=== PATIENT | male | born 1960 | race Caucasian/White ===

== ENCOUNTER → 2023-08-14 | Outpatient (CLI) | payer OTHER ==
--- NOTE | 2023-08-15 21:35 | MR ---
EXAMINATION TYPE: MR shoulder RT wo con DATE OF EXAM: 08/14/2023 COMPARISON: Right shoulder radiograph 08/12/2023 HISTORY: Right shoulder pain TECHNIQUE: Multiplanar, multisequence imaging of the right shoulder is performed without contrast. FINDINGS: SUPRASPINATUS: Near complete, full-thickness tear involving the anterior supraspinatus, measures 2.1 x 2.1 cm. Superimposed intrasubstance longitudinal tearing extends medially to the myotendinous junct ion. INFRASPINATUS: Intact. SUBSCAPULARIS: Intact. TERES MINOR: Intact. BICEPS: Intact. Intra-articular portion demonstrates mild thickening and increased intrasubstance sig nal, relating to tendinosis. Normal anchor in the supraglenoid tubercle. Extra-articular portion is a ppropriately positioned within the bicipital groove. GLENOHUMERAL JOINT: Normal alignment and joint space. Normal cartilage. No effusion. ACROMIOCLAVICULAR JOINT: Mild capsular hypertrophy. Normal subacromial space. No effusion. LABRUM: Normal, given the limitations of a non-arthrographic exam. SUBDELTOID BURSA: Normal. No increased fluid. MUSCLES: Normal. BONE MARROW: Normal. OTHER: No additional significant abnormality is appreciated. IMPRESSION: 1. Supraspinatus full-thickness tear with superimposed intrasubstance longitudinal tear. 2. Biceps tendinosis. 3. Mild osteoarthrosis AC joint.
== END | disposition home or self-care (01) ==
LOC: RADMRIMAIN 20:15
PROVIDERS: ATTEND Orthopaedic Surgery
DX: M75.111 Incomplete rotator cuff tear or rupture of right shoulder, not specified as traumatic (principal); M19.011 Primary osteoarthritis, right shoulder; M67.813 Other specified disorders of tendon, right shoulder

== ENCOUNTER → 2023-09-07 | Outpatient (CLI) | payer OTHER ==
[2023-09-07 15:56] LABS: Basophils # (A) 0.03 X 10*3/uL (0.00-0.10); Basophils % (A) 0.5 %; Eosinophils # (A) 0.12 X 10*3/uL (0.04-0.35); HGB 15.3 g/dL (13.0-17.0); Lymphocytes # (A) 1.71 X 10*3/uL (0.90-5.00); Lymphocytes % (A) 28.2 %; MCH 31.4 pg (27.0-32.0); MCHC 33.3 g/dL (32.0-37.0); MCV 94.5 FL (80.0-97.0); Mean Platelet Volume 10.5 FL (9.5-12.2); Monocytes # (A) 0.69 X 10*3/uL (0.20-1.00); Monocytes % (A) 11.4 %; NRBC Per 100 WBC 0 X 10*3/uL (0.00-0.01); Neutrophils % (A) 57.7 %; Platelet Count 202 X 10*3/uL (140-440); RBC 4.87 X 10*6/uL (4.40-5.60); RDW 12.5 % (11.5-14.5); WBC 6.06 X 10*3/uL (4.50-10.00)
[2023-09-07 16:16] LABS: Anion Gap 10.9 mmol/L (4.00-12.00); Carbon Dioxide 27.1 mmol/L (21.6-31.8); Potassium 4.4 mmol/L (3.5-5.5)
== END | disposition home or self-care (01) ==
LOC: LABWHC1 08:01
PROVIDERS: ATTEND Orthopaedic Surgery
DX: Z01.818 Encounter for other preprocedural examination (principal); M75.41 Impingement syndrome of right shoulder; R94.31 Abnormal electrocardiogram [ECG] [EKG]
CPT/HCPCS: 36415; 80051; 85025; 93005

== ENCOUNTER → 2023-10-01 | Day surgery (SDC) | payer OTHER ==
--- NOTE | 2023-09-30 21:08 | HP ---
HISTORY AND PHYSICAL DATE OF SURGERY: 10/01/2023. HISTORY OF PRESENT ILLNESS: Sonu Morgan is a 62-year-old patient seen with progressive right shoulder pain. After treatment options were discussed, he elected to proceed with right shoulder arthroscopy. Consent was obtained. PAST MEDICAL HISTORY: Hyperlipidemia. PAST SURGICAL HISTORY: Noncontributory. DAILY MEDICATIONS: 1. Aleve. 2. Lipitor. ALLERGIES: None. SOCIAL HISTORY: He denies tobacco use. PHYSICAL EVALUATION OF THE RIGHT SHOULDER: Flexion is 90 degrees, abduction is 90 degrees. External rotation is 30 degrees with pain and weakness. He has tenderness along the anterolateral acromion and rotator cuff insertion site. Impingement sign is positive at 90 degrees. Cross-body adduction sign is positive. Drop-arm sign is positive. Distal neurovascular exam is intact. IMAGING STUDIES: Right shoulder radiographs revealed a type 2 acromion, acromioclavicular joint osteoarthritis, and cystic changes of the tuberosity. Right shoulder MRI revealed rotator cuff tear along with biceps tendinitis. IMPRESSION: 1. Right shoulder impingement with rotator cuff tear. 2. Right shoulder acromioclavicular joint osteoarthritis. 3. Right shoulder bicipital tenderness. 4. Hyperlipidemia. PLAN: Right shoulder arthroscopy with subacromial decompression, rotator cuff repair, Aidan procedure, biceps tenodesis, and debridement. MMODL / IJN: [id number] /
[~2023-10-01] MED LIST: DEXAMETHASONE SOD PHOSPHATE 4 MG/ML 1 ML VIAL IV ONE; GLYCOPYRROLATE 0.2 MG/ML 2 ML VIAL ONE; HYDROmorphone 0.5 MG/0.5 ML SYRINGE IVP PRN; LACTATED RINGERS 1,000 ML IV SCH; LIDOCAINE 1% INJ 10MG/ML (20 ML MDV) ONE; LIDOCAINE 4% LTA KIT (4 ML) TOPICAL ONE; MIDAZOLAM 2 MG/2 ML VIAL IV PRN; MIDAZOLAM 2 MG/2 ML VIAL ONE; NEOSTIGMINE 1 MG/ML 10 ML VIAL ONE; ONDANSETRON 4 MG/2 ML VIAL IVP ONE; PROPOFOL 10 MG/ML 20 ML VIAL IV ONE; ROCURONIUM 10 MG/ML (5 ML VIAL) IV ONE; ROPIVACAINE 5 MG/ML 30 ML VIAL ONE; SCOPOLAMINE 1 MG/72 HR PATCH TRANSDERM ONE; SUCCINYLCHOLINE CHLORIDE 200 MG/10 ML VIAL IV ONE; fentaNYL (PF) 50 MCG/ML 2 ML AMP IVP ONE
[2023-10-01 06:37] VITALS: RESP 16; TEMP 97.8
--- NOTE | 2023-10-01 07:27 | P.ANPRN ---
Procedure Note - Anesthesia - Nerve Block Performed Right Interscalene Single Time Out Performed: Yes Date of Procedure: 10/01/23 Procedure Start Time: 06:46 Procedure Stop Time: 06:51 Location of Patient: PreOp Sedation Type: Sedate with meaningful contact maintained Preparation: Sterile Prep Position: Sitting Catheter: None Needle Types: Pajunk Needle Gauge: 21 Ultrasound used to visualize needle placement: Yes (Nerve stimulation @0.5Ma) Ultrasound used to observe medication spread: Yes Injectate: 0.5% Ropivacaine (see comment for volume) (Ropivacaine 25ml) Blood Aspirated: No Pain Paresthesia on Injection Noted: No Resistance on Injection: Normal Image Stored and Saved: Yes Events: Uneventful and Well Tolerated
--- NOTE | 2023-10-01 09:23 | P.OP ---
Date of Procedure: 10/01/23 Preoperative Diagnosis: Right shoulder impingement Postoperative Diagnosis: 1. Right shoulder rotator cuff tear 2. Right shoulder bicipital tendinitis 3. Right shoulder impingement 4. Right shoulder acromioclavicular joint osteoarthritis 5. Right shoulder superficial labral tear Procedure(s) Performed: 1. Right shoulder arthroscopic rotator cuff repair 2. Right shoulder arthroscopic biceps tenodesis 3. Right shoulder arthroscopic subacromial decompression 4. Right shoulder arthroscopic Aidan procedure 5. Right shoulder arthroscopic debridement labral tear Implants: 5Arthrex 4.75 swivel lock anchors Anesthesia: GETA, regional (Interscalene block) Surgeon: Saúl Ogden Skull Chopper #1: Fredi Beckett Estimated Blood Loss (ml): 10 Pathology: none sent Condition: stable Disposition: PACU Indications for Procedure: 62-year-old gentleman seen with progressive right shoulder pain. After having treatment options discussed, he elected to proceed with arthroscopy. Operative Findings: See description of procedure Description of Procedure: Patient underwent an interscalene block by department of anesthesia. The patient was then taken to the operative suite. The patient underwent a general anesthetic by the department of anesthesia. The patient was placed into a lateral position and secured. There was appropriate padding of the bony prominence. Right shoulder was then prepped and draped in normal sterile orthopedic fashion. We placed the extremity in 10 pounds of longitudinal traction. A posterior incision was now made for a posterior working portal site. The trocar and cannula were inserted into the glenohumeral joint. Arthroscopy was initiated. Spinal needle was now inserted anteriorly, to ascertain the anterior working portal site. An incision was now made in that area, a trocar was inserted followed by a probe. There was superficial tearing of the anterior superior labrum. There was hyperemia of the long head biceps tendon consistent with bicipital tendinitis. There was a large rotator cuff tear. I introduced a motorized shaver and debrided the labrum getting down to stable labral tissue. I decided to proceed with arthroscopic biceps tenodesis. I placed cannulas through my anterior portal site. I now passed a loop intact stitch through the biceps tendon. I now released the biceps tendon from the superior labrum. With the assistance of Collin SMITH a punch hole at the interval for insertion of an anchor. I now passed our suture limbs through the eyelet of Arthrex 4.75 swivel lock anchor. I placed the eyelet into the pre-punch hole and held in position while Collin SMITH tensioned the suture and deployed the anchor with good fixation noted. The residual suture limbs was now clipped. We had excell ent stable appearing biceps tenodesis. Instruments were now removed from the glenohumeral joint. Utilizing the posterior working portal site, the trocar and cannula were inserted into the subacromial space. Arthroscopy initiated. I made an incision 2 fingerbreadths lateral to the acromion. I introduced my trocar followed by my ArthroCare ablator. I now began ablating thick subacromial bursal tissue, which exposed the undersurface of the anterior acromion. There was diminished subacromial space. There was a very prominent anterior acromion. A motorized bur was introduced and a subacromial decompression was performed. I also excised some osteophytes off the inferior aspect of the distal clavicle. The AC joint was visualized and noted to be fairly arthritic. The motorized bur was introduced in the anterior portal site and a Aidan procedure was performed without difficulty, decompressing the AC joint nicely. I turned my attention to the rotator cuff. There was a 2.5 cm rotator cuff tear. I debrided the margins getting down to stable tendon tissue. I introduced my motorized bur and abraded the footprint area, getting some petechial bleeding. I now made an accessory portal site off the lateral aspect of the acromion. I punched [] holes medial for medial row fixation with the assistance of Collin SMITH carefully tapping the punch with a mallet as I held the punch and the camera. I now introduced both anchors into the pre-punched holes and Collin SMITH tapped them with the mallet as I held anchors and the camera. Collin SMITH now screwed the anchors in place a while I held the anchor guide and camera. All 8 limbs of suture were now passed through good bites of rotator cuff tendon. I now punched 2 holes for lateral row fixation again I held the punch and camera while Collin SMITH used a mallet to tap in the punch. We now passed sutures through both anchors and individually I introduced the anchors into the pre-punch holes I held the anchor guide in position with one hand holding the camera with the other hand while Collin SMITH tensioned the sutures and screwed in the anchors one at a time. All residual suture limbs were now clipped. We had good c ompression of the tendon along the entire footprint. Instruments now removed from the portal sites. All portal sites were approximated with nylon suture. Sterile dressings were applied followed by a shoulder immobilizer. Fredi SMITH assisted in this complex case. The patient was awakened, transferred to a bed, and taken to recovery in stable condition.
[2023-10-01 11:03] VITALS: PULSE 62
[2023-10-01 12:38] VITALS: BP 157/81
== END | disposition home or self-care (01) ==
LOC: OR 05:44
PROVIDERS: ATTEND Orthopaedic Surgery
DX: S43.431A Superior glenoid labrum lesion of right shoulder, initial encounter (principal); M75.101 Unspecified rotator cuff tear or rupture of right shoulder, not specified as traumatic; M75.21 Bicipital tendinitis, right shoulder; M19.011 Primary osteoarthritis, right shoulder; G89.18 Other acute postprocedural pain; E78.5 Hyperlipidemia, unspecified; Z79.899 Other long term (current) drug therapy; Z88.8 Allergy status to other drugs, medicaments and biological substances; X58.XXXA Exposure to other specified factors, initial encounter
CPT/HCPCS: 64415; 29827; 29828; 29826; 29824; C1713 ×3; J2250; J0330; J1100; J2710; J0690; J2405; J2001; J3010; J2795; J2704

== ENCOUNTER → 2024-09-12 | Outpatient (CLI) | payer OTHER ==
--- NOTE | 2024-09-12 09:11 | MR ---
INDICATION: Patient age:Male; 63 years old; Reason for study: M54.12 RADICULOPATHY; PHH. COMPARISON: None. TECHNIQUE: Multi planar, multi sequence imaging was performed of the cervical spine before and after the uneventful administration of 9 mL of Gadobutrol intravenously. FINDINGS: Alignment: The cervical vertebral bodies have preserved heights. No spondylolisthesis. Reversal of th e normal cervical lordosis. Mild dextrocurvature of the cervicothoracic spine. Bones: Bone signal is within normal limits. Prominent anterior osteophytosis at C5-C7. Cord: The spinal cord is unremarkable with regards to their signal intensity and morphology. No abnor mal contrast enhancement. Discs: Multilevel disc desiccation is present. C2-C3: No significant disc pathology. The spinal canal is patent. No neural foraminal stenosis. C3-C4: Broad-based disc bulge without significant central canal stenosis. Uncovertebral joint hypertr ophy. The right neural foramen is patent. Moderate left neural foraminal stenosis. C4-C5: Broad-based disc bulge with mild effacement of anterior thecal sac and abutment of the spinal cord. No neuroforaminal stenosis. C5-C6: Broad-based disc bulge with mild effacement of the anterior thecal sac. Uncovertebral joint hy pertrophy with mild bilateral neural foraminal stenosis. C6-C7: Broad-based disc bulge with minimal effacement of anterior thecal sac. No neural foraminal st enosis. C7-T1: No significant disc pathology. The spinal canal is patent. No neural foraminal stenosis. Other: None. IMPRESSION: Mild multilevel disc degeneration with associated osteoarthritic changes as described above. Most pro nounced from C3 to C6. No abnormal contrast enhancement. [facility], , 09/12/2024 9:09 AM
== END | disposition home or self-care (01) ==
LOC: RADMRIMAIN 06:32
PROVIDERS: ATTEND Family Medicine
DX: M50.10 Cervical disc disorder with radiculopathy, unspecified cervical region (principal); M47.22 Other spondylosis with radiculopathy, cervical region
CPT/HCPCS: 72156; A9585